=== PATIENT | male | born 1965 | race Caucasian/White ===

== ENCOUNTER → 2020-07-10 | Outpatient (CLI) | payer BC ==
--- NOTE | 2020-07-11 07:09 | XR ---
EXAMINATION TYPE: XR Hip Bilateral Complete DATE OF EXAM: 07/10/2020 CLINICAL HISTORY: Weakness stiffness and pain for one year. TECHNIQUE: AP and frogleg views of the bilateral hips are obtained. COMPARISON: None. FINDINGS: There is no acute fracture/dislocation evident in either hip. Advanced superior joint spac e loss right hip with [id number] appearance and sclerosis. Mild to moderate acetabular and had neck collar spurring. Overlying soft tissue unremarkable. Left hip shows more moderate axial joint space loss and mild acetabular spurring along with subchondral cystic change. IMPRESSION: As above. Asymmetric advanced degenerative change right hip noted.
== END | disposition home or self-care (01) ==
LOC: LABWHC1 15:52
PROVIDERS: ATTEND Family Medicine
DX: M16.11 Unilateral primary osteoarthritis, right hip (principal)
CPT/HCPCS: 73521

== ENCOUNTER 2020-12-04 01:49 | Emergency (ER) | payer BC ==
[2020-12-04 01:58] VITALS: BP 151/78; PULSE 90; RESP 20; TEMP 98.4
[2020-12-04] MEDS ORDERED: FLUORESCEIN STRIPS 1 MG STRIP RIGHT EYE ONE (02:01)
[2020-12-04] MEDS ORDERED: PROPARACAINE 0.5% OPHTH DROPS 15 ML BTL RIGHT EYE STA (02:01)
--- NOTE | 2020-12-04 02:02 | ED ---
Eye Problem HPI - General Chief complaint: Eye Problems Stated complaint: FB in left eye Time Seen by Provider: 12/04/20 02:01 Source: patient Mode of arrival: ambulatory Limitations: no limitations - History of Present Illness Initial comments: 55-year-old male presents to emergency Department with chief complaint of left eye pain. Patient reports he was grinding on some metal yesterday while wearing a face shield but he noticed some foreign bodies flying into his face. Patient reports now he's having some discomfort in the left eye with tearing. He states the eyes itchy but denies any blurred. Denies any pain with extraocular movements. Does report eye redness but denies any periorbital edema or erythema. Tetanus status up-to-date. Does not wear contacts. - Related Data Allergies Allergy/AdvReac Type Severity Reaction Status Date / Time No Known Allergies Allergy Verified 12/04/20 01:50 Review of Systems ROS Statement: Those systems with pertinent positive or pertinent negative responses have been documented in the HPI. ROS Other: All systems not noted in ROS Statement are negative. Past Medical History Past Medical History: Asthma, COPD, Hypertension History of Any Multi-Drug Resistant Organisms: None Reported Past Surgical History: Orthopedic Surgery Additional Past Surgical History / Comment(s): hand, buttocks ( sliver) Past Psychological History: No Psychological Hx Reported Smoking Status: Light tobacco smoker Past Alcohol Use History: None Reported Past Drug Use History: None Reported General Exam Limitations: no limitations General appearance: alert, in no apparent distress, obese Head exam: Present: atraumatic, normocephalic, normal inspection Eye exam: Present: PERRL, EOMI, conjunctival injection, other (Negative Dwight sign.). Absent: normal appearance (Small foreign body noted at 2:00) Pupils: Present: normal accommodation ENT exam: Present: normal exam, normal oropharynx, mucous membranes moist Neck exam: Present: normal inspection, full ROM. Absent: tenderness Respiratory exam: Present: normal lung sounds bilaterally. Absent: respiratory distress Cardiovascular Exam: Present: regular rate, normal rhythm, normal heart sounds Extremities exam: Present: normal inspection, full ROM, normal capillary refill. Absent: tenderness, pedal edema, joint swelling Back exam: Present: normal inspection, full ROM. Absent: tenderness Neurological exam: Present: alert, oriented X3 Psychiatric exam: Present: normal affect, normal mood Skin exam: Present: warm, dry, intact, normal color Course Vital Signs 12/04/20 01:50 Temperature 98.4 F Pulse Rate 90 Respiratory 20 Rate Blood Pressure 151/78 O2 Sat by Pulse 95 Oximetry Procedures - Forgein Body Removal Eye Site: Left Anesthetic Used: Proparacaine Eye Exam Technique: Denny Lamp, Fluorescein Foreign Body Suspected: Metal Forgein Body Removal Technique: Cotton Swab, Algerbrush Remaining Debris: No Patient Tolerated: well Medical Decision Making - Medical Decision Making 55-year-old male presents to emergency Department with chief complaint of left eye pain. On physical examination, patient does have a visible foreign body at 2:00. Less than 1 mm in size. I did attempt to remove it with a Q-tip but was unable to. I did using all compression which was able to remove the foreign body. No other signs of foreign body under the eyelids. Patient will be started on tobramycin ophthalmic solution. Tetanus was updated. Patient was also given analgesia if he continues to have pain secondary to using a brush. He was advised to follow with jitterbug operator if symptoms not improved. Strict return parameters were thoroughly discussed the patient was understanding and agreeable. Case discussed with DR sheldon Disposition Clinical Impression: Corneal abrasion, left, Foreign body of left eye Disposition: HOME SELF-CARE Condition: Stable Instructions (If sedation given, give patient instructions): Corneal Abrasion (DC) Additional Instructions: Apply 2 drops, 4 times per day in the left eye. Follow-up with an jitterbug operator. Take medication as directed. Alternate between Tylenol and Motrin for pain control.Please return to the Emergency Department if symptoms worsen or any other concerns. Is patient prescribed a controlled substance at d/c from ED?: No Referrals: Omar Marks MD [Primary Care Provider] - 1-2 days Shelton Lucio MD [STAFF PHYSICIAN] - 1-2 days Time of Disposition: 02:26
[2020-12-04] MEDS ORDERED: DIPH,PERTUS(ACELL)TETVAC-LF 0.5 ML VIAL IM ONE (02:23)
[2020-12-04] MEDS ORDERED: ACET/COD 300 MG/30 MG STARTER PACK 6 TAB BTL PO STA (02:23)
[2020-12-04] MEDS ORDERED: TOBRAMYCIN 0.3% OPHTH OINT 3.5 GM TUBE LEFT EYE STA (02:24)
== END 2020-12-04 02:49 | disposition home or self-care (01) ==
LOC: EC 01:49
DX: T15.02XA Foreign body in cornea, left eye, initial encounter (principal); Z23 Encounter for immunization; F17.200 Nicotine dependence, unspecified, uncomplicated; W22.8XXA Striking against or struck by other objects, initial encounter
CPT/HCPCS: 65220; 90471; 90715; 99283

== ENCOUNTER → 2021-01-21 | Outpatient (CLI) | payer BC, MEDICARE ==
[2021-01-21 14:33] LABS: HCT 45.6 % (39.0-53.0); HGB 15.5 gm/dL (13.0-17.5); MCH 31.1 pg (25.0-35.0); MCV 91.7 fL (80.0-100.0); Mean Platelet Volume 7.2; Platelet Count 209 k/uL (150-450); RBC 4.97 m/uL (4.30-5.90); WBC 5.9 k/uL (3.8-10.6)
[2021-01-21 14:42] LABS: ALT 55 U/L (4-49); AST 46 U/L (17-59); African American GFR (CKD) >90 (>60 ml/min/1.73 sqM); Albumin 4.2 g/dL (3.5-5.0); Alkaline Phosphatase 43 U/L (38-126); Anion Gap 10 mmol/L; Blood Urea Nitrogen 18 mg/dL (9-20); Calcium 9.7 mg/dL (8.4-10.2); Carbon Dioxide 25 mmol/L (22-30); Chloride 103 mmol/L (98-107); Glucose 102 mg/dL (74-99); Non-African American GFR(CKD) >90 (>60 ml/min/1.73 sqM); Partial Thromboplastin Time 25.9 sec (22.0-30.0); Potassium 4.6 mmol/L (3.5-5.1); Prothrombin Time 10.3 sec (9.0-12.0); Sodium 138 mmol/L (137-145); Total Bilirubin 0.6 mg/dL (0.2-1.3); Total Protein 7.4 g/dL (6.3-8.2)
[2021-01-21 14:45] LABS: Appearance,Urine Clear (Clear); Bilirubin,Urine Negative (Negative); Blood,Urine Negative (Negative); Color,Urine Yellow; Glucose,Urine (UA) Negative (Negative); Ketones,Urine Negative (Negative); Leukocyte Esterase,Urine Negative (Negative); Nitrite,Urine Negative (Negative); PH, Urine 5.5 (5.0-8.0); Protein,Urine Negative (Negative); Specific Gravity,Urine 1.009 (1.001-1.035); Urobilinogen,Urine <2.0 mg/dL (<2.0)
== END | disposition home or self-care (01) ==
LOC: LABPAT 13:39
PROVIDERS: ATTEND Orthopaedic Surgery
DX: Z01.818 Encounter for other preprocedural examination (principal); Z01.812 Encounter for preprocedural laboratory examination; M16.11 Unilateral primary osteoarthritis, right hip
CPT/HCPCS: 80053; 81003; 85027; 85610; 85730; 86850; 86900; 86901; 87070; 93005

== ENCOUNTER 2021-02-02 07:48 | Day surgery (SDC) | payer BC, MEDICARE ==
[2021-01-28 12:29] VITALS: BMI 42.3
[~2021-02-02 07:48] MED LIST: ACETAMINOPHEN TAB 500 MG TAB PO PRN; DEXAMETHASONE SOD PHOSPHATE 4 MG/ML 1 ML VIAL IV ONE; GABAPENTIN 300 MG CAP PO PRN; HYDROmorphone 0.5 MG/0.5 ML SYRINGE IVP PRN; LACTATED RINGERS 1,000 ML IV SCH; LIDOCAINE 1% (10MG/ML) FOR IV START INTRADERMA PRN; MELOXICAM 7.5 MG TAB PO PRN; METOCLOPRAMIDE 5 MG/ML 2 ML VIAL IVP PRN; ONDANSETRON 4 MG/2 ML VIAL IVP ONE; TRANEXAMIC ACID 1,000 MG in SODIUM CHLORIDE 0.9% 100 ML IVPB PRN; ceFAZolin 3 GM in SODIUM CHLORIDE 0.9% 100 ML IVPB PRN
[2021-02-02] MEDS ORDERED: TRANEXAMIC ACID 1,000 MG/10 ML VIAL ONE (09:06)
[2021-02-02] MEDS ORDERED: KETAMINE 10 MG/ML 20 ML VIAL ONE (09:06)
[2021-02-02] MEDS ORDERED: ROCURONIUM 10 MG/ML (5 ML VIAL) IV ONE (09:06)
[2021-02-02] MEDS ORDERED: PROPOFOL 10 MG/ML 20 ML VIAL IV ONE (09:06)
[2021-02-02] MEDS ORDERED: METOPROLOL TARTRATE 5 MG/5 ML VIAL IVP ONE (09:06)
[2021-02-02] MEDS ORDERED: SUCCINYLCHOLINE CHLORIDE 100 MG/5 ML SYR IV ONE (09:06)
[2021-02-02] MEDS ORDERED: GLYCOPYRROLATE 0.2 MG/ML 2 ML VIAL ONE (09:06)
[2021-02-02] MEDS ORDERED: SODIUM CHLORIDE 0.9% 100 ML BAG ONE (09:06)
[2021-02-02] MEDS ORDERED: HEPARIN SODIUM,PORCINE 10,000 UNIT/ML 1 ML VIAL ONE (09:06)
[2021-02-02] MEDS ORDERED: LIDOCAINE 1% INJ 10MG/ML (20 ML MDV) ONE (09:06)
[2021-02-02] MEDS ORDERED: fentaNYL (PF) 50 MCG/ML 2 ML AMP ONE (09:06)
[2021-02-02] MEDS ORDERED: MIDAZOLAM 2 MG/2 ML VIAL ONE (09:06)
[2021-02-02] MEDS ORDERED: NEOSTIGMINE 1 MG/ML 10 ML VIAL ONE (09:06)
[2021-02-02] MEDS ORDERED: SODIUM CHLORIDE 0.9% IRRIG 1,000 ML BTL IRRIGATION ONE (09:06)
[2021-02-02] MEDS ORDERED: HYDROmorphone (PF) 1 MG/ML ONE (09:06)
[2021-02-02] MEDS ORDERED: HYDROmorphone 1 MG/ML 1 ML SYRINGE IVP PRN (09:11)
[2021-02-02] MEDS ORDERED: HYDROmorphone 0.5 MG/0.5 ML SYRINGE IVP PRN (09:11)
[2021-02-02] MEDS ORDERED: ONDANSETRON 4 MG/2 ML VIAL IVP PRN (09:11)
[2021-02-02] MEDS ORDERED: NALOXONE 0.4 MG/ML 1 ML VIAL IV PRN (09:11)
[2021-02-02] MEDS ORDERED: ceFAZolin 3,000 MG in SODIUM CHLORIDE 0.9% IRRIGATIO 3,000 ML IRRIGATION ONE (09:11)
[2021-02-02] MEDS ORDERED: HYDROmorphone 0.2 MG/1 ML SYRINGE IVP PRN (09:11)
[2021-02-02] MEDS ORDERED: HYDROcodone/APAP 7.5-325MG 1 EACH TAB PO PRN ×2 (09:13)
[2021-02-02] MEDS ORDERED: SODIUM CHLORIDE 0.9% 1,000 ML IV SCH (09:15)
[2021-02-02] MEDS: ROPIVACAINE/EPI/CLONIDINE/KET 50 ML SYRINGE MISCELLANE PRN ×2 (09:38→10:55)
[2021-02-02] MEDS ORDERED: LACTATED RINGERS 1,000 ML IV ONE ×2 (10:40→14:53)
--- NOTE | 2021-02-02 11:19 | P.OP ---
Date of Procedure: 02/02/21 Preoperative Diagnosis: Severe osteoarthritis right hip Postoperative Diagnosis: Severe osteoarthritis right hip Procedure(s) Performed: Right total hip arthroplasty with a direct anterior approach Implants: [employer] Polarstem standard size 2 [employer] R3, 3 hole hemispherical acetabular shell, 52 mm [employer] Reflection 6.5 mm cancellus screw, 20 mm 2 [employer] R3, XLPE 20 acetabular liner [employer] Oxinium femoral head 36 m, +0 All components were press-fit. The articulation is Oxinium on polyethylene. Anesthesia: GETA Surgeon: Devon Emerson Time Lock Expert #1: Raya Steven Estimated Blood Loss (ml): 500 (340 mL returned with Cell Saver) Pathology: other (Femoral head) Condition: stable Disposition: PACU Indications for Procedure: After failure of conservative treatment we discussed the surgical and nonsurgical treatment options at length. Patient wishes to proceed with a total hip arthroplasty with a direct anterior approach. Complications specific to this procedure were discussed at length, including but not limited to infection, leg length discrepancy, dislocation, nerve injury, and fracture. Covid-19 was also discussed at length with the patient, and they are aware of the current policies and procedures. The patient was given the option of delaying surgery, but they elect to proceed knowing these risks. Patient is aware of all these complications and informed consent was obtained Operative Findings: The operative findings are consistent with severe osteoarthritis of the right hip Description of Procedure: Patient was seen and evaluated in the preoperative area and the consent was reviewed. The operative site was marked with a skin marker. The patient was then brought to the operating room and given preoperative antibiotics intravenously. 1 g of Tranexamic acid was also given intravenously. A general anesthetic was administered by the anesthesia department. The patient was then placed on the Needmore table with the bony prominences well-padded. The hip area was then prepped with a ChloraPrep solution and draped in the usual sterile fashion. A universal timeout was then performed, which confirmed the patient's name, surgical site, ALLERGIES, and procedure being performed on the consent. Next the incision site was located at 1 cm distal to the anterior superior iliac spine along the flexion crease of the hip. The skin and subcutaneous tissues were sharply incised. Incision was carefully dissected down to the fascia overlying the tensor fascia esther muscle. This fascia was then incised in line with the incision. Care was taken to stay laterally in order to avoid injuring the lateral femoral cutaneous nerve. Next, using blunt finger dissection, the tensor fascia esther muscle was dissected off its investing fascia. The muscle was then carefully retracted laterally with a cobra retractor over the lateral neck of the femur. Next, the circumflex vessels were identified and cauterized using the AquaMantis device. The anterior hip capsule was then exposed. The capsule was then opened and an inverted T fashion. Cobra retractors were then placed intracapsularly. The retractors were maintained intracapsular throughout the procedure. The proximal femur was then visualized. A small amount of traction was placed on the leg. The femoral neck was then osteotomized appropriate level above the lesser trochanter. A small wedge of bone was then removed from the remaining femoral head. Next, using a corkscrew the femoral head was removed from the acetabulum. On gross visual inspection, the femoral head had complete loss of articular cartilage and multiple periarticular osteophytes. The femoral head was then measured. Attention was then turned to the acetabulum. The acetabulum was exposed and any remaining labrum was excised. Sequential reaming of the acetabulum was performed using fluoroscopic guidance until there was a good bed of bleeding cancellus bone. When the appropriate size was reached, a trial was then placed. The position and fit of the trial was checked with fluoroscopy. The trial was then removed. Then, using fluoroscopic guidanc e, the final implant was impacted at 20 of anteversion and 40 of abduction, and fully seated in the acetabulum. 2 screws were then placed in the acetabulum. Again fluoroscopy was used to check position of the screws. Next, the liner was then impacted, with a 20 elevated liner located in the anterior superior quadrant. Component locking was confirmed. Attention was then directed to the femur. With the aid of the Needmore table, the femur was externally rotated to approximately 130, extended, and adducted under the opposite leg. A side hook was then placed under the proximal femur, and the side hook elevator was used to elevate the proximal femur while releasing the capsule. Retractors were then placed. A capsular release was performed, as well as a release of the conjoined tendon, which afforded excellent visualization of the proximal femur. Next, a box osteotome was used to lateralize the proximal femur. A paint mixer hand was then used to locate the femoral canal. Sequential broaching was then performed with appropriate size which afforded excellent fixation in the proximal femur. A trial was then placed with appropriate head and neck, and the hip was gently reduced with the aid of the Needmore table. Fluoroscopy was then used to check position of the components, as well as to ensure equal leg lengths. Due to the patient's size, it was difficult to determine the true length of each hip. The leg lengths were made as close as possible while maintaining hip stability. The hip was then gently dislocated and the trials were then removed. Final implants were then impacted and the hip was again reduced. Final fluoroscopic x-rays confirmed that the components were in anatomic position, as well as equal leg lengths. The hip was also taken through range of motion, and found to be stable. The hip was then copiously irrigated with antibiotic solution with pulsatile lavage. The hip was then irrigated with Irrisept solution. The soft tissues were then injected with a ropivacaine solution, which consisted of 246.25 mg of ropivacaine, 0.5 mg of epinephrine, 30 mg of Toradol, 80 g of clonidine, and 48.45 mL of sterile water, for a total of 100 mL of fluid injected. A second dose of 1 g of Tranexamic acid was also given intravenously. Any blood collected by Cell Saver was then returned to the patient at this time. The fascia was then closed with 2-0 strata fix suture. The subcutaneous tissue was closed with 3-0 Vicryl. The subcuticular tissue was closed with 3-0 strata fix suture. The skin was then closed with Exofin skin glue. After the glue and dried, and Optifoam silver impregnated dressing was applied. The patient was then transferred to the recovery room in stable condition. The physical therapy assistant DAVID Garcia was required due to the complexity of surgery, and the need for skilled surgical scrub technician for positioning, draping, exposure, retraction, and closure of the wound.
--- NOTE | 2021-02-02 11:29 | FL ---
EXAMINATION TYPE: FL guidance operating room, XR Hip Limited RT DATE OF EXAM: 02/02/2021 CLINICAL HISTORY: Right hip pain and osteoarthritis. TECHNIQUE: Fluoroscopy. Limited intraoperative views right hip. COMPARISON: Bilateral hip x-rays July 10, 2020. FINDINGS: Fluoroscopic guidance was provided during right hip replacement procedure performed by Dr. Emerson. A total of 1 minute 21 seconds of fluoroscopic time was utilized during the procedure and two spot images was acquired. The 2 spot intraoperative images show metallic hardware from total right hip arthroplasty satisfactor y in position on frontal projection. IMPRESSION: As Above.
[2021-02-02 11:34] VITALS: TEMP 97
--- NOTE | 2021-02-02 12:07 | XR ---
EXAMINATION TYPE: XR Hip Limited RT DATE OF EXAM: 02/02/2021 Comparison: None Clinical History: 55-year-old male Status post hip surgery, assess surgical alignment Findings: Image shows placement of right total arthroplasty. Both acetabular cup and femoral stem components of the prosthesis are well seated without prosthetic fracture. Alignment grossly anatomic. Scattered so ft tissue air related to recent operation. Right-sided pelvic phleboliths. Impression: Uncomplicated postoperative appearance right total hip arthroplasty.
[2021-02-02 15:20] VITALS: RESP 20
[2021-02-02 16:16] VITALS: BP 114/76; PULSE 90
[2021-02-02] MEDS ORDERED: ceFAZolin 3 GM in SODIUM CHLORIDE 0.9% 100 ML IVPB SCH (17:00)
== END 2021-02-02 16:40 | disposition home health service (06) ==
LOC: OR 07:48
PROVIDERS: ATTEND Orthopaedic Surgery
DX: M16.11 Unilateral primary osteoarthritis, right hip (principal); M25.751 Osteophyte, right hip; I10 Essential (primary) hypertension; J98.4 Other disorders of lung; F32.9 Major depressive disorder, single episode, unspecified; J44.9 Chronic obstructive pulmonary disease, unspecified; E66.01 Morbid (severe) obesity due to excess calories; Z68.41 Body mass index [BMI] 40.0-44.9, adult; L98.9 Disorder of the skin and subcutaneous tissue, unspecified; Z98.890 Other specified postprocedural states; Z82.49 Family history of ischemic heart disease and other diseases of the circulatory system; F17.200 Nicotine dependence, unspecified, uncomplicated; Z82.5 Family history of asthma and other chronic lower respiratory diseases; Z97.3 Presence of spectacles and contact lenses; Z79.51 Long term (current) use of inhaled steroids; Z79.899 Other long term (current) drug therapy
CPT/HCPCS: 97110; 97161; 86891; 88300; 73501; 27130; P9022; C1776; J2250; J1644; J1100; J2710; J0690 ×2; J2405; J2001; J3010; J1170 ×2; J0330; J2704; 86850; 86900; 86901

== ENCOUNTER → 2024-01-02 | Outpatient (CLI) | payer BC ==
--- NOTE | 2024-01-02 17:17 | XR ---
EXAMINATION TYPE: XR chest 2V DATE OF EXAM: 01/02/2024 4:13 PM CLINICAL INDICATION:Male, 58 years old with history of J45.20 MILD INTERMITTENT ASTHMA, UNCOMPLICATED ; [facility] COMPARISON: Chest radiographs from 11/17/2012. TECHNIQUE: XR chest 2V Frontal and lateral views of the chest. FINDINGS: Lungs/Pleura: There is no evidence of pleural effusion, focal consolidation, or pneumothorax. Pulmonary vascularity: Unremarkable. Heart/mediastinum: Cardiomediastinal silhouette is unremarkable. Musculoskeletal: No acute osseous pathology. Other findings: None IMPRESSION: No acute cardiopulmonary disease/process.
== END ==
LOC: CPPFTMAIN 14:49
PROVIDERS: ATTEND Family Medicine
DX: J45.20 Mild intermittent asthma, uncomplicated (principal); Z79.899 Other long term (current) drug therapy; Z79.51 Long term (current) use of inhaled steroids
CPT/HCPCS: 71046; 94060; 94726; 94729

== ENCOUNTER → 2024-08-13 | Outpatient (CLI) | payer BC ==
--- NOTE | 2024-08-13 17:09 | XR ---
EXAMINATION TYPE: XR ankle complete LT DATE OF EXAM: 08/13/2024 COMPARISON: None HISTORY: Ankle and joint pain TECHNIQUE: 3V left ankle FINDINGS: Ankle mortise is intact. No acute fracture or dislocation evident. Tiny secondary ossificat ion centers inferior to the medial malleolus. Soft tissues slight prominence over the lateral malleol us. Small plantar calcaneal heel spur is present. Follow up exams can be performed 7-10 days from acute trauma for continued pain. IMPRESSION: 1. No acute osseous abnormality left ankle 2. Minimal soft tissue swelling over the lateral ankle [facility] Sade Koch, Workstation: [facility], 08/13/2024 5:07 PM
== END | disposition home or self-care (01) ==
LOC: RADXRMAIN 16:11
PROVIDERS: ATTEND Family Medicine